=== PATIENT | female | born 1945 | race Caucasian/White ===

== ENCOUNTER 2018-01-23 05:50 | Emergency (ER) | payer MEDICARE, MEDICAID, SELFPAY ==
[2018-01-23 05:51] VITALS: BP 159/82; PULSE 101; RESP 14; TEMP 37.1; O2SAT 96; BMI 27.6
--- NOTE | 2018-01-23 06:12 | CT_ITS ---
STUDY: CTA CHEST REASON FOR EXAM: Female, 72 years old. Atrial fibrillation. Aortic valve surgery. Recent knee replacement. RADIATION DOSAGE (If Supplied By Facility): CTDIvol = ( 25 ) mGy, DLP = ( 486.8 ) mGycm TECHNIQUE: The examination was performed with the intravenous administration of 75 ml of Isovue 370 contrast material. Post-processing of the angiographic images was performed, with multiplanar reformation and 3D reconstruction. Individualized dose optimization techniques were used for this CT. COMPARISON: 07/03/2015 CTA chest. X-ray chest 01/15/2018. FINDINGS: Supraclavicular: Small low-density nodules of the left thyroid gland. Enlargement and multinodular features of the right thyroid gland. Grossly these features favor goiter. Similar features were seen on prior imaging of 2014. A dominant cystic nodule on that study has regressed. Body wall soft tissues: No acute process. Upper abdomen: Solitary densely calcified gallstone measures 10 mm. No acute inflammation of the gallbladder. Nondilated biliary tree. Osseous structures: Median sternotomy. Mild thoracic multilevel spondylosis, and kyphoscoliosis. Multilevel cervical degenerative disc disease may contribute to foraminal stenosis. Mediastinum: Normal esophagus. No mass or lymphadenopathy. Lungs: No acute process. No significant chronic interstitial changes. Scattered calcified nodules are consistent with old granulomatous disease. Heart: Normal cardiac size without effusion. Mild coronary calcifications of the proximal LAD. Aorta: Aortic bioprosthetic valve. 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 No significant atherosclerosis. Widely patent three-vessel cervical arch branching. Pulmonary arteries: Nondilated with no evidence of large central pulmonary embolus. Peripheral evaluation is satisfactory into the subsegmental divisions and there is no convincing evidence of clinically significant peripheral pulmonary embolism. CT/CTA Chest W/WO Contrast IMPRESSION: 1. 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 Bioprosthetic aortic valve. 2. No acute cardiopulmonary process. 3. No evidence of acute pulmonary embolus. Electronically Signed: Adama Jarrett, at 7:55 EDT Tel , Service support ,
--- NOTE | 2018-01-23 06:14 | ED.VISSUMM ---
- ER Visit Summary Date of Service: 01/23/18 Chief Complaint: [] Palpitations History of Present Illness: The patient is a 72 F [] complaining of palpitations beginning 1 hour ago. Patient reports a history of palpitations. She reports she recently had right total knee replacement 5 days ago without incident. She reports she is getting Lovenox injections since the surgery. She reports she was previously on Coumadin for an aortic valve replacement as well as atrial fibrillation. She denies chest pressure or shortness of breath. No other complaints at this time. Physical Examination: [] Afebrile, vital signs stable. Cardiovascular exam is regular rate and rhythm. Lungs are clear to auscultation. Abdomen is soft and nontender. Examination of extremities reveals a normal-appearing postoperative right total knee replacement. No signs of obvious infection or cellulitis. Test Results: [] CBC within normal limits. BMP normal with exception of a potassium of 3.0. INR 1.2. Troponin less than 0.15. Chest x-ray 1 view negative. CTA pending at time of dictation. EKG shows normal sinus rhythm with a rate of 99 without ischemia or ectopy. Emergency Department Course and Treatment: [] Patient evaluated for her underlying etiology of palpitations with concern for possibility of PE status post total knee replacement 5 days ago. If CTA is negative my partner will discharge the patient with close follow-up. I do not feel that she warrants any further cardiac evaluation or inpatient evaluation. Treatment Plan: [] Follow-up with PCP. Disposition: [] Pending negative CTA of the chest patient will be discharged in stable condition. Impression: [] Palpitations Hypokalemia This note was generated with CoverMyMedsation software. It may contain incorrect words, spelling, and punctuation that were not noted in review of the chart prior to signing ED Disposition - Plan for ED Patient: Chief Complaint: Palpitations Referrals: [facility] ,Out of [Primary Care Provider] -
--- NOTE | 2018-01-23 06:15 | RAD_ITS ---
STUDY: X-RAY CHEST REASON FOR EXAM: Female, 72 years old. Chest pain, atrial fibrillation TECHNIQUE: Portable upright AP chest COMPARISON: 07/03/2015 FINDINGS: Median sternotomy. Elevated right hemidiaphragm, chronic. Lungs clear. Normal cardiomediastinal silhouette, jhonny and pleural margins. No acute osseous or upper abdominal process. RAD/Chest 1 View (Portable) IMPRESSION: No acute cardiopulmonary process. Electronically Signed: Adama Jarrett, at 6:45 EDT Tel , Service support ,
--- NOTE | 2018-01-23 06:17 | ED.DCSUM_ITS ---
- ER Visit Summary Date of Service: 01/23/18 Chief Complaint: [] Palpitations History of Present Illness: The patient is a 72 F [] complaining of palpitations beginning 1 hour ago. Patient reports a history of palpitations. She reports she recently had right total knee replacement 5 days ago without incident. She reports she is getting Lovenox injections since the surgery. She reports she was previously on Coumadin for an aortic valve replacement as well as atrial fibrillation. She denies chest pressure or shortness of breath. No other complaints at this time. Physical Examination: [] Afebrile, vital signs stable. Cardiovascular exam is regular rate and rhythm. Lungs are clear to auscultation. Abdomen is soft and nontender. Examination of extremities reveals a normal-appearing postoperative right total knee replacement. No signs of obvious infection or cellulitis. Test Results: [] CBC within normal limits. BMP normal with exception of a potassium of 3.0. INR 1.2. Troponin less than 0.15. Chest x-ray 1 view negative. CTA pending at time of dictation. EKG shows normal sinus rhythm with a rate of 99 without ischemia or ectopy. Emergency Department Course and Treatment: [] Patient evaluated for her underlying etiology of palpitations with concern for possibility of PE status post total knee replacement 5 days ago. If CTA is negative my partner will discharge the patient with close follow-up. I do not feel that she warrants any further cardiac evaluation or inpatient evaluation. Treatment Plan: [] Follow-up with PCP. Disposition: [] Pending negative CTA of the chest patient will be discharged in stable condition. Impression: [] Palpitations Hypokalemia This note was generated with [employer] software. It may contain incorrect words, spelling, and punctuation that were not noted in review of the chart prior to signing ED Disposition - Plan for ED Patient: Chief Complaint: Palpitations Referrals: [facility] ,Out of [Primary Care Provider] -
[2018-01-23] MEDS: Aspirin 81 MG TAB.CHEW 324 MG PO (06:27)
[2018-01-23 06:40] LABS: Absolute Lymphocyte Count 0.99 X10^3/ul (0.83-4.51); Basophil# 0.01 X10^3/uL; Basophil% 0.2 % (0-1); Eosinophil# 0.11 X10^3/uL; Eosinophils% 2.3 % (0-5); Hematocrit 33.4 % (37-47); Hemoglobin 10.9 g/dl (12.0-15.0); Lymphocyte # 0.99 X10^3/ul (4.0); Lymphocyte % 20.8 % (19-41); Mean Corp Hgb Conc 32.6 g/gl (32-36); Mean Corpuscular Hgb 29.3 pg (27.0-32.0); Mean Corpuscular Volume 89.8 fL (81-99); Mean Platelet Vol. 9.6 fl (6.2-12.0); Monocyte# 0.63 X10^3/uL; Monocyte% 13.2 % (0-10); Neutrophil # 3.01 X10^3/uL (2.7-7.7); Neutrophil % 63.3 % (47-70); Platelet Count 193 K/mm3 (150-450); RBC Distribution Width CV 13.4 % (11.6-14.6); RBC Distribution Width SD 43.8 fl (35.1-43.9); Red Blood Count 3.72 M/mm3 (4.2-5.4); White Blood Count 4.8 K/mm3 (4.4-11.0)
[2018-01-23 06:42] LABS: POSITIVE COUNT NO; POSITIVE DIFFERENTIAL NO; POSITIVE MORPHOLOGY NO
[2018-01-23 06:47] LABS: International Normalized Ratio 1.2; Prothrombin Time (Protime)PT. 15.6 SECONDS (11.7-14.9)
[2018-01-23 07:03] LABS: Anion Gap 8 (5-15); BUN 8 mg/dL (7-18); BUN/Creat Ratio 13.3 RATIO (10-20); Calcium,Total 8.5 mg/dL (8.5-10.1); Chloride 101 mmol/L (98-107); EST Glomerular Filtration Rate 104 mL/min (>60); Est Glom Filt Rate - Afr Amer 126 mL/min (>60); Glucose 117 mg/dL (74-106); Sodium Level 140 mmol/L (136-145)
--- NOTE | 2018-01-23 07:19 | ED.DEP ---
ED Disposition - Plan for ED Patient: Disposition: Home or Assisted Living Chief Complaint: Palpitations Instructions: ED Palpitations Referrals: [facility],Out of [Primary Care Provider] -
[2018-01-23 07:51] VITALS: BP 149/84; PULSE 87; RESP 18; O2SAT 97
[2018-01-23 08:02] VITALS: BP 149/84; PULSE 101; RESP 16; O2SAT 97
[2018-01-23] MEDS: Metoprolol Tartrate 25 MG Tablet 50 MG PO (08:18)
[2018-01-23] MEDS: amLODIPine 10 MG Tablet PO (08:18)
== END 2018-01-23 08:41 | disposition home or self-care (01) ==
PROVIDERS: Emergency Provider Emergency Medicine
DX: R00.0 Tachycardia, unspecified (principal); E87.6 Hypokalemia; I48.91 Unspecified atrial fibrillation; Z96.651 Presence of right artificial knee joint; Z95.2 Presence of prosthetic heart valve; Z79.01 Long term (current) use of anticoagulants; Z79.82 Long term (current) use of aspirin; Z79.02 Long term (current) use of antithrombotics/antiplatelets; Z79.891 Long term (current) use of opiate analgesic; Z79.899 Other long term (current) drug therapy
CPT/HCPCS: 71045; 71275; 80048; 84484; 85025; 85610; 93005; 99284; Q9967; A4216